=== PATIENT | female | born 1970 | race Caucasian/White ===

== ENCOUNTER 2024-01-03 14:10 | Emergency (ER) | payer BC, SELFPAY ==
[2024-01-03 14:13] VITALS: BP 185/96
[2024-01-03 16:16] VITALS: BP 146/99
[2024-01-03 16:26] LABS: % Basophils 0.7 % (0-2); % Eosinophils 0.5 % (0-6); % Immature Granulocytes 0.4 % (0-0.5); % Lymphocytes 21.3 % (20.5-51.1); % Monocytes 9.3 % (1.7-9.3); % Neutrophils 67.8 % (42.2-75.2); Absolute Lymphocytes 1.2 10^3/uL (1.2-3.4); Absolute Monocytes 0.5 10^3/uL (0.1-0.6); Absolute Neutrophils 3.8 10^3/uL (1.4-6.5); Hematocrit 36.8 % (37.0-47.0); Hemoglobin 12.9 g/dL (12.0-16.0); Mean Corp Hgb Conc. 35.1 g/dL (33.0-37.0); Mean Corpuscular Hgb 35.8 pg (27.0-31.0); Mean Corpuscular Volume 102.2 fL (81.0-99.0); Mean Platelet Volume 9.5 fL (7.4-10.4); Nucleated Red Blood Cells % 0 %; Platelet Count 227 10^3/uL (130-400); White Blood Cell Count 5.7 10^3/uL (4.8-10.8)
--- NOTE | 2024-01-03 16:28 | ED.GENMED ---
History of Present Illness
<Abida Boyd MD, Resident - Last Filed: 01/03/24 20:04>
General
Chief Complaint: Chest Problem
Source: patient
Exam Limitations: none
Time Seen by Provider: 01/03/24 15:53
Nursing documentation reviewed up to this point in time: agreed with
History of Present Illness
History of Present Illness:
53-year-old female with history of breast cancer, right chest wall sarcoma, and HTN was referred to the ED for Chest CT by [facility] following no-contrast chest CT from 12/31 showing tiny nodules in the left and right upper lobes. This was
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 Pt feels well and denies any symptoms.
Past History
<Abida Boyd MD, Resident - Last Filed: 01/03/24 20:04>
Past History
ED Past Medical History: Cancer (breast cancer, R chest wall sarcoma), HTN and Psychiatric (anxiety)
ED Past Surgical History: Other (Double mastectomy, multiple chest wall surgeries)
Patient has exhibited threatening behavior?: No
Social History
Tobacco: Vaping (nicotine)
Alcohol: Daily (2-3 vodka drinks)
Drug: Marijuana (medical marijuana for anxiety)
Review of Systems
<Abida Boyd MD, Resident - Last Filed: 01/03/24 20:04>
Review of Systems
Allergies reviewed?: Yes
Constitutional: Denies fever, night sweats or chills
Respiratory: Denies cough or trouble breathing
Cardiac: Denies chest pain, diaphoresis or palpitations
ABD/GI: Denies abdominal pain or diarrhea
Phy Exam
<Abiad Boyd MD, Resident - Last Filed: 01/03/24 20:04>
General Physical Exam
General Presentation: well appearing and no apparent distress
General Skin: warm and dry
General Habitus: normal
General Mental: alert
Cardiovascular Exam
Cardiovascular Exam: regular rate/rhythm and no murmur
Pulmonary Exam
Pulmonary Exam: lungs clear, no respiratory distress, no rales, no crackles, no rhonchi and no wheezing
Gastrointestinal Exam
Gastrointestinal Exam: non tender, soft and non distended
Course
<Abida Boyd MD, Resident - Last Filed: 01/03/24 20:04>
Orders/Labs/Results
Orders:
Orders
01/03/24 16:15
Complete Blood Count/With Diff Urgent
01/03/24 16:53
Comprehensive Metabolic Panel Urgent
01/03/24 17:38
CT Chest Pe Study Urgent
Comment:
Reason For Exam: h/o cancer, abnormal OP CT chest--sent to r/o PE
Abnormal Lab Results
01/03/24 01/03/24
16:15 16:53
RBC 3.60 L 10^6/uL
(4.20-5.40)
Hct 36.8 L %
(37.0-47.0)
MCV 102.2 H fL
(81.0-99.0)
MCH 35.8 H pg
(27.0-31.0)
Chloride 97 L mmol/L
(98-107)
BUN 19 H mg/dl
(7-17)
Creatinine 1.2 H mg/dL
(0.6-1.0)
AST 92 H U/L
(14-36)
ALT 111 H U/L
(0-35)
01/03/24 16:15
01/03/24 16:53
Vital Signs
Initial and Last Documented VS:
Initial Vital Signs
Temp Pulse Resp BP Pulse Ox
98.3 F 79 16 185/96 100
01/03/24 14:13 01/03/24 14:13 01/03/24 14:13 01/03/24 14:13 01/03/24 14:13
Last Documented Vital Signs
Temp Pulse Resp BP Pulse Ox
98.3 F 74 11 116/74 100
01/03/24 14:13 01/03/24 19:00 01/03/24 19:00 01/03/24 19:00 01/03/24 18:15
<Bradley Naqvi MD - Last Filed: 01/03/24 17:40>
Orders/Labs/Results
Orders:
Orders
01/03/24 16:15
Complete Blood Count/With Diff Urgent
01/03/24 16:53
Comprehensive Metabolic Panel Urgent
01/03/24 17:38
CT Chest Pe Study Urgent
Comment:
Reason For Exam: h/o cancer, abnormal OP CT chest--sent to r/o PE
Abnormal Lab Results
01/03/24 01/03/24
16:15 16:53
RBC 3.60 L 10^6/uL
(4.20-5.40)
Hct 36.8 L %
(37.0-47.0)
MCV 102.2 H fL
(81.0-99.0)
MCH 35.8 H pg
(27.0-31.0)
Chloride 97 L mmol/L
(98-107)
BUN 19 H mg/dl
(7-17)
Creatinine 1.2 H mg/dL
(0.6-1.0)
AST 92 H U/L
(14-36)
ALT 111 H U/L
(0-35)
01/03/24 16:15
01/03/24 16:53
Vital Signs
Initial and Last Documented VS:
Initial Vital Signs
Temp Pulse Resp BP Pulse Ox
98.3 F 79 16 185/96 100
01/03/24 14:13 01/03/24 14:13 01/03/24 14:13 01/03/24 14:13 01/03/24 14:13
Last Documented Vital Signs
Temp Pulse Resp BP Pulse Ox
98.3 F 74 11 116/74 100
01/03/24 14:13 01/03/24 19:00 01/03/24 19:00 01/03/24 19:00 01/03/24 18:15
<Abida Boyd MD, Resident - Last Filed: 01/03/24 20:04>
MDM/Problems Addressed
Differential Diagnosis Includes:
Benign lung nodules, lung cancer
MDM/Problems Addressed:
Pt appears well, with no complaints. Will order bmp for kidney function and CT chest with contrast.will wait result of imaging study. Otherwise, pt is stable for discharge.
<bAida Boyd MD, Resident - Last Filed: 01/03/24 20:04>
*Critical Care Note
Total Time (30-74mins, 75-104mins- exclusive of procedures): Not Applicable
ED Attending Note
<Abida Boyd MD, Resident - Last Filed: 01/03/24 20:04>
-
Portions of this chart may have been created with voice recognition software.� Occasional wrong word or��sound alike� substitutions may have occurred due to the inherent limitations of voice recognition software.
<Bradley Naqvi MD - Last Filed: 01/03/24 17:40>
ED Attending Note
Patient seen and examined by attending physician: Yes
I performed a history and physical exam of patient and discussed management with resident, I reviewed resident's note and agree with documented findings and plan of care.: Yes
ED Attending Note:
I have seen and evaluated the patient with a [id number] encounter. I have spoken to the resident and involved in the medical history, the physical exam, medical decision making.
Evaluation and management service: agree unless noted differently below.
Results interpretation: agree unless noted differently below.
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 She
was sent in by her oncologist today to have a CT scan of her chest. She had her routine screening CT scan of her chest 2 days ago without contrast. Was found to have new nodules in her lungs. Her oncologist called her today and referred her to
the ER to have an IV scan done expeditiously. She has no symptoms.
Physical exam: Awake alert not in distress. Hypertensive in triage normalized by my assessment. She is breathing comfortably no distress, no accessory muscle use, normal respiratory and pulse ox. She has no edema in her extremities.
Medical Decision Makin-year-old female with history as documented presents to the ER referred by her oncologist for a contrast CT of the chest after noncontrast scan 2 days ago showed new nodules�oncologist apparently felt expeditious scan
needed due to her extensive cancer history. Patient is asymptomatic. Her oncologist is Dr. Michael Zepeda through [place]. Will discuss with patient's oncologist, plan to send for screening labs and CT chest.
Called oncologist to confirm requested study�apparently there was some concern on outpatient CT that there could be PE and so she was sent in for an angiogram to rule out PE. Study changed to CTA.
Discharge Plan
Departure
Patient Disposition: Home (Routine Discharge)
Date of Disposition: 01/03/24
Time of Disposition: 19:04
Patient with high blood pressure during this ER visit?: Yes
Discharge Problem:
Abnormal chest CT
Instructions: BLOOD PRESSURE
Referrals:
UNKNOWN - PT DOES,NOT KNOW [Family Provider] -
Activity Restrictions/Additional Instructions:
Thank you for visiting the Emergency Department at [facility].
1. Please schedule a follow up appointment as directed. Call first thing tomorrow morning to make an appointment.
2. If indicated, please take your medications as instructed and indicated on discharge paperwork.
3. If any of your symptoms do not improve, or persist, or become more severe within 6-12 hours, please return to the emergency department for further care.
4. Please return to the emergency department if you develop a headache, neck pain/stiffness, fever greater than 100.4F, chest pain, shortness of breath, persistent nausea, vomiting, slurred speech, difficulty walking, numbness/tingling, weakness,
signs of infection or any other symptoms that are worrisome to you.
Please call [phone] if you have any questions.
Interventions
Interventions:
*Risk Screen - Suicide Last Done: 01/03/24 14:13
*General Assessment Last Done: 01/03/24 14:13
*Neglect/Abuse Screening Last Done: 01/03/24 14:13
ED- Fall Risk Assessment Last Done: 01/03/24 19:10
*ED COVID-19 Vaccine History Last Done: 01/03/24 19:10
*Nursing Disposition Last Done: 01/03/24 19:10
ED- Cardiac Assessment Last Done: 01/03/24 16:10
ED- Pulmonary Assessment Last Done: 01/03/24 16:10
Discharge Date and Time
Discharge Date/Time: 01/03/24 19:11
Print Language: GREEK
[2024-01-03 17:00] VITALS: BP 118/85
[2024-01-03 17:22] LABS: ALT (SGPT) 111 U/L (0-35); AST (SGOT) 92 U/L (14-36); Albumin 4.8 g/dl (3.5-5.0); Alkaline Phosphatase 86 U/L (38-126); Blood Urea Nitrogen 19 mg/dl (7-17); Calcium 9.7 mg/dl (8.4-10.2); Carbon Dioxide 25 mmol/L (22-30); Chloride 97 mmol/L (98-107); Glucose 72 mg/dl (70-99); Potassium 4.4 mmol/L (3.5-5.1); Sodium 140 mmol/L (135-145); Total Bilirubin 0.8 mg/dl (0.2-1.3); Total Protein 7.3 g/dl (6.3-8.2); eGFR 53.79
[2024-01-03 18:00] VITALS: BP 115/74
[2024-01-03 19:00] VITALS: BP 116/74
== END 2024-01-03 19:11 | disposition home or self-care (01) ==
LOC: EMR 14:10
PROVIDERS: EMERGENCY PHYSICIAN Emergency Medicine
DX: R91.8 Other nonspecific abnormal finding of lung field (principal); I10 Essential (primary) hypertension; F41.9 Anxiety disorder, unspecified; F17.290 Nicotine dependence, other tobacco product, uncomplicated; Z85.3 Personal history of malignant neoplasm of breast; Z85.830 Personal history of malignant neoplasm of bone; Z90.13 Acquired absence of bilateral breasts and nipples; Z92.21 Personal history of antineoplastic chemotherapy; Z92.3 Personal history of irradiation; Z98.82 Breast implant status
CPT/HCPCS: 99284; 71275; 80053; 85025; Q9967